=== PATIENT | female | born 1985 | race African-American/Black ===

== ENCOUNTER 2017-02-04 17:53 | Emergency (ER) | payer MEDICAID ==
[2017-02-04 18:06] VITALS: BP 97/53
[2017-02-04] MEDS ORDERED: ONDANSETRON 4 MG TAB.RAPDIS PO ONE (18:55)
[2017-02-04] MEDS ORDERED: OXYCODONE-ACETAMINOPHEN 5-325 MG TABLET PO ONE (18:55)
--- NOTE | 2017-02-04 18:57 | ER Document Report ---
ED Medical Screen (RME) - General Chief Complaint: Abdominal Pain Stated Complaint: ABDOMINAL PAIN Time Seen by Provider: 02/04/17 18:43 Notes: This 31-year-old female patient comes emergency room complaining onset yesterday of upper abdominal pain with nausea and vomiting. She states it feels like her previous episodes of pancreatitis. She reports she was released from hospital about 1 month ago for her most recent hospitalization for pancreatitis. She generally gets her care at [facility], but was down in this area visiting so she came here this time. I have greeted and performed a rapid initial assessment of this patient. A comprehensive ED assessment and evaluation of the patient, analysis of test results and completion of the medical decision making process will be conducted by additional ED providers. TRAVEL OUTSIDE OF THE [place] IN LAST 30 DAYS: No - Related Data Allergies/Adverse Reactions: No Known Allergies Allergy (Verified 02/04/17 18:26) Home Medications: Current Home Medications Omeprazole 20 mg PO DAILY 02/04/17 [History] Promethazine HCl [Phenergan 25 mg Tablet] 25 mg PO Q6H PRN 02/04/17 [History] Past Medical History - Social History Chew tobacco use (# tins/day): No Frequency of alcohol use: None Drug Abuse: None Renal/ Medical History: Denies: Hx Peritoneal Dialysis Past Surgical History: Reports: Hx Abdominal Surgery - laparoscopy, Hx Tubal Ligation - Immunizations Hx Diphtheria, Pertussis, Tetanus Vaccination: No Physical Exam - Vital signs Vitals: Temp Pulse Resp BP Pulse Ox 98.7 F 88 13 97/53 L 98 02/04/17 18:02 02/04/17 18:02 02/04/17 18:02 02/04/17 18:02 02/04/17 18:02 Course - Vital Signs Vital signs: Temp Pulse Resp BP Pulse Ox 98.7 F 88 13 97/53 L 98 02/04/17 18:02 02/04/17 18:02 02/04/17 18:02 02/04/17 18:02 02/04/17 18:02
[2017-02-04 19:56] LABS: ABSOLUTE BASOPHILS # (AUTO) 0.1 10^3/uL (0.0-0.2); ABSOLUTE EOSINOPHILS # (AUTO) 0.1 10^3/uL (0.0-0.6); ABSOLUTE LYMPHOCYTES (AUTO) 3.9 10^3/uL (0.5-4.7); ABSOLUTE MONOCYTES (AUTO) 0.5 10^3/uL (0.1-1.4); ABSOLUTE NEUT (AUTO) 2.5 10^3/uL (1.7-8.2); BASOPHILS % (AUTO) 0.9 % (0-2); EOSINOPHILS % (AUTO) 1.9 % (0-6); HEMATOCRIT 38.3 % (36.0-47.0); HEMOGLOBIN 12.5 g/dL (12.0-15.5); HGB HCT DIFFERENCE -0.8; LYMPHOCYTES % (AUTO) 55.1 % (13-45); MEAN CORPUSCULAR HEMOGLOBIN 26.2 pg (27.0-33.4); MEAN CORPUSCULAR HGB CONC 32.6 g/dL (32.0-36.0); MEAN CORPUSCULAR VOLUME 80 fl (80-97); MONOCYTES % (AUTO) 6.8 % (3-13); RED BLOOD COUNT 4.77 10^6/uL (3.72-5.28); RED CELL DISTRIBUTION WIDTH 15.6 % (11.5-14.0); SEGMENTED NEUTROPHILS % (AUTO) 35.3 % (42-78)
[2017-02-04 20:05] LABS: APPEARANCE,URINE CLEAR; BILIRUBIN,URINE NEGATIVE (NEGATIVE); GLUCOSE, URINE NEGATIVE (NEGATIVE); KETONES,URINE NEGATIVE (NEGATIVE); LEUKOCYTE ESTERASE,URINE NEGATIVE (NEGATIVE); NITRITE,URINE NEGATIVE (NEGATIVE); PROTEIN,URINE NEGATIVE (NEGATIVE); URINE SPECIFIC GRAVITY 1.006; UROBILINOGEN,URINE NEGATIVE mg/dL (<2.0)
[2017-02-04 20:16] LABS: ALANINE AMINOTRANSFERASE 16 U/L (9-52); ALBUMIN 4.8 g/dL (3.5-5.0); ALKALINE PHOSPHATASE 72 U/L (38-126); ANION GAP 10 (5-19); ASPARTATE AMINO TRANSFERASE 13 U/L (14-36); BILIRUBIN,DIRECT 0.4 mg/dL (0.0-0.4); BILIRUBIN,TOTAL 0.5 mg/dL (0.2-1.3); BLOOD UREA NITROGEN 6 mg/dL (7-20); CALCIUM 10.4 mg/dL (8.4-10.2); CARBON DIOXIDE 27 mmol/L (22-30); CHLORIDE 102 mmol/L (98-107); CREATININE RESULT 0.66 mg/dL (0.52-1.25); GLUCOSE 94 mg/dL (75-110); LIPASE 34.3 U/L (23-300); POTASSIUM 3.4 mmol/L (3.6-5.0); SODIUM 138.9 mmol/L (137-145); TOTAL PROTEIN 8.1 g/dL (6.3-8.2)
== END 2017-02-04 20:51 | disposition left against medical advice (07) ==
LOC: ER 17:53
DX: Z53.9 Procedure and treatment not carried out, unspecified reason (principal); R10.9 Unspecified abdominal pain; R10.10 Upper abdominal pain, unspecified; Z79.899 Other long term (current) drug therapy
CPT/HCPCS: 99281; 36415; 83690; 84703; 85025; 80053; 81001; S0119

== ENCOUNTER 2017-02-18 09:43 | Emergency (ER) | payer MEDICAID ==
[2017-02-18] MEDS ORDERED: ONDANSETRON HCL INJ/PF 4 MG/2 ML SDV IV ONE (09:58)
[2017-02-18] MEDS ORDERED: NORMAL SALINE 1000 ML 1,000 ML IV PRN (09:58)
--- NOTE | 2017-02-18 10:00 | ER Document Report ---
ED Medical Screen (RME) - General Chief Complaint: Abdominal Pain Stated Complaint: NAUSEA,ABDOMINAL PAIN Time Seen by Provider: 02/18/17 09:58 Notes: Patient states she has a history of chronic pancreatitis for the last 10 years. She states several days ago she began with nausea and abdominal pain consistent with her episodes of pancreatitis. She states she has had a cholecystectomy. She denies drinking alcohol. She says they have been unable to find the cause of her chronic pancreatitis. TRAVEL OUTSIDE OF THE [place] IN LAST 30 DAYS: No - Related Data Allergies/Adverse Reactions: No Known Allergies Allergy (Verified 02/18/17 09:47) Home Medications: Current Home Medications No Home Medications 02/18/17 [History] Past Medical History - Social History Chew tobacco use (# tins/day): - 5 Frequency of alcohol use: None Drug Abuse: None Renal/ Medical History: Denies: Hx Peritoneal Dialysis Past Surgical History: Reports: Hx Abdominal Surgery - laparoscopy, Hx Tubal Ligation - Immunizations Hx Diphtheria, Pertussis, Tetanus Vaccination: No Physical Exam - Vital signs Vitals: Temp Pulse Resp BP Pulse Ox 98.1 F 78 18 111/72 100 02/18/17 09:47 02/18/17 09:47 02/18/17 09:47 02/18/17 09:47 02/18/17 09:47 Course - Vital Signs Vital signs: Temp Pulse Resp BP Pulse Ox 98.1 F 78 18 111/72 100 02/18/17 09:47 02/18/17 09:47 02/18/17 09:47 02/18/17 09:47 02/18/17 09:47
[2017-02-18] MEDS ORDERED: MAG HYDROX/AL HYDROX/SIMETH SUSP 30 ML UDCUP PO ONE (10:25)
[2017-02-18] MEDS ORDERED: LIDOCAINE 2% VISCOUS SOLN 20 ML UDCUP PO ONE (10:25)
--- NOTE | 2017-02-18 10:28 | ER Document Report ---
ED GI/ - General Mode of Arrival: Ambulatory Information source: Patient TRAVEL OUTSIDE OF THE [place] IN LAST 30 DAYS: No - HPI Patient complains to provider of: Abdominal pain, Vomiting Associated symptoms: Other - see above <IVETTE SAMANO - Last Filed: 02/18/17 10:37> <SIMON SILVA - Last Filed: 02/18/17 12:12> - General Chief Complaint: Abdominal Pain Stated Complaint: NAUSEA,ABDOMINAL PAIN Time Seen by Provider: 02/18/17 09:58 Notes: Patient is a 31 year old female who presents to the ED with complaints of upper abdominal pain, nausea and vomiting x2 days. Patient states she has a history of pancreatitis and this feels the same, her last flare up was 1 month ago. She normally goes to [facility] for evaluation but that she is moving to this area. Patient was in the ED approximately 2 weeks ago for similar symptoms and states she left because she had a in the family. (IVETTE SAMANO) - Related Data Allergies/Adverse Reactions: No Known Allergies Allergy (Verified 02/18/17 09:47) Home Medications: Current Home Medications No Home Medications 02/18/17 [History] Past Medical History - General Information source: Patient - Social History Smoking Status: Current Every Day Smoker Chew tobacco use (# tins/day): No Frequency of alcohol use: None Drug Abuse: None Family History: Reviewed & Not Pertinent Renal/ Medical History: Denies: Hx Peritoneal Dialysis GI Medical History: Reports: Other - pancreatitis Past Surgical History: Reports: Hx Abdominal Surgery - laparoscopy, Hx Tubal Ligation - Immunizations Hx Diphtheria, Pertussis, Tetanus Vaccination: No <IVETTE SAMANO - Last Filed: 02/18/17 10:37> Review of Systems - Review of Systems Constitutional: No symptoms reported EENT: No symptoms reported Cardiovascular: No symptoms reported Respiratory: No symptoms reported Gastrointestinal: See HPI, Abdominal pain, Nausea, Vomiting Genitourinary: No symptoms reported Female Genitourinary: No symptoms reported Musculoskeletal: No symptoms reported Skin: No symptoms reported Hematologic/Lymphatic: No symptoms reported Neurological/Psychological: No symptoms reported <IVETTE SAMANO - Last Filed: 02/18/17 10:37> Physical Exam - General General appearance: Appears well, Alert In distress: None - HEENT Head: Normocephalic, Atraumatic Eyes: Normal Extraocular movements intact: Yes Pupils: PERRL - Respiratory Respiratory status: No respiratory distress Chest status: Nontender Breath sounds: Normal Chest palpation: Normal - Cardiovascular Rhythm: Regular Heart sounds: Normal auscultation Murmur: No - Abdominal Bowel sounds: Hypoactive Tenderness: Tender - epigastric, not tender in lower abdomen - Back Back: Normal - Extremities General upper extremity: Normal inspection, Normal ROM General lower extremity: Normal inspection, Normal ROM - Neurological Neuro grossly intact: Yes - Psychological Associated symptoms: Normal affect, Normal mood - Skin Skin Temperature: Warm Skin Moisture: Dry Skin Color: Normal <IVETTE SAMANO - Last Filed: 02/18/17 10:37> - Vital signs Vitals: Temp Pulse Resp BP Pulse Ox 98.1 F 78 18 111/72 100 02/18/17 09:47 02/18/17 09:47 02/18/17 09:47 02/18/17 09:47 02/18/17 09:47 Course <IVETTE SAMANO - Last Filed: 02/18/17 10:37> - Laboratory Result Diagrams: 02/18/17 10:35 02/18/17 10:35 <SIMON SILVA - Last Filed: 02/18/17 12:12> - Re-evaluation Re-evalutation: 02/18/17 11:46 The patient's lipase is quite low as it has been on other visits here. It is unlikely she is suffering from pancreatitis. The nurse reports that the patient initially was going to leave and go to an urgent care when she was not getting pain medications. She was given 1 Percocet. Now the nurse that the patient wants to leave stating she needs refills on all her medications. 02/18/17 12:08 Advised the patient that I do not think this is pancreatitis based on a lipase which is quite low. She states she does not know who her primary care provider is, but records indicate she does have Medicaid [place] access. She further states that someone wanted her to be seen at [facility] but they wanted all her records first before they would see her but she does not know who this is. She also states that she was hospitalized in November and December and then discharged with pain medications and would like to get refills of her pain medication. I advised her that we do not treat chronic pain with narcotics in the emergency room here. I reviewed the [place] controlled substance database and informed the patient I could see that the doctors in [facility] seem to prescribe her narcotic medication frequently. I told her that would not be occurring at this facility. I also advised her she can buy generic Prilosec OTC, she does not need prescriptions for Protonix and Prevacid which she states she is taking. (SIMON SILVA) - Vital Signs Vital signs: Temp Pulse Resp BP Pulse Ox 98.1 F 78 18 111/72 100 02/18/17 09:47 02/18/17 09:47 02/18/17 09:47 02/18/17 09:47 02/18/17 09:47 - Laboratory Laboratory results interpreted by me: 02/18/17 02/18/17 02/18/17 10:00 10:35 10:35 MCH 26.8 L RDW 16.2 H Chloride 108 H BUN 5 L AST 12 L Ur Leukocyte Esterase TRACE H Discharge <IVETTE SAMANO - Last Filed: 02/18/17 10:37> <SIMON SILVA - Last Filed: 02/18/17 12:12> - Discharge Clinical Impression: Epigastric abdominal pain Condition: Stable Disposition: HOME, SELF-CARE Additional Instructions: Reflux Disease (GERD): Gastro-Esophageal Reflux Disease (GERD) is caused by stomach acid refluxing back up into the esophagus. The valve at the end of the esophagus may be weak. This is common in persons with a hiatal hernia. GERD symptoms can include indigestion, chest pain, heartburn, or food "sticking." Certain foods, alcohol, and aspirin can make GERD worse. Treatment depends on the severity. Usually, antacids or acid-suppressing medicines are used. When the esophagus is acutely inflamed, the physician will often prescribe membrane-protective drugs such as Carafate. Some patients benefit from medication such as Reglan that tightens the valve at the top of the stomach. Avoid those foods that bring on your symptoms. For many people, these foods are coffee, chocolate, onions, garlic, and carbonated drinks. Don't use alcohol, aspirin, caffeine, or tobacco. Don't eat late at night -- within 4 hours of bedtime. Don't over-eat. If necessary, elevate the head of your bed about 4 inches so that stomach acid will not roll up into your esophagus. Call the doctor if you develop severe chest pain, inability to swallow fluids, fever, or worsening symptoms. You most likely have gastroesophageal reflux. Your lipase level is quite low today and has been on your previous visits here. That makes pancreatitis much less likely. You should get the generic version of Prilosec OTC and take on a daily basis. You should eat a bland diet. You should take anti-acids between meals and at bedtime. Follow-up with your primary care provider--the name should be listed on your Medicaid card or a phone number that you can call and find out who your provider is. RETURN TO THE EMERGENCY ROOM IF ANY NEW OR WORSENING SYMPTOMS. Sarah Attestation: 02/18/17 12:12 I personally performed the services described in the documentation, reviewed and edited the documentation which was dictated to the scribe in my presence, and it accurately records my words and actions. (SIMON SILVA) Sarah Documentation - Scribe Written by Sarah:: sarah Iglesias, 02/18/2017, 1036 acting as scribe for :: Tabitha <IVETTE SAMANO - Last Filed: 02/18/17 10:37>
[2017-02-18 10:45] LABS: APPEARANCE,URINE SLIGHTLY-CLOUDY; BILIRUBIN,URINE NEGATIVE (NEGATIVE); GLUCOSE, URINE NEGATIVE (NEGATIVE); KETONES,URINE NEGATIVE (NEGATIVE); LEUKOCYTE ESTERASE,URINE TRACE (NEGATIVE); NITRITE,URINE NEGATIVE (NEGATIVE); PROTEIN,URINE NEGATIVE (NEGATIVE); URINE SPECIFIC GRAVITY 1.002; UROBILINOGEN,URINE NEGATIVE mg/dL (<2.0)
[2017-02-18 11:05] LABS: ABSOLUTE BASOPHILS # (AUTO) 0.1 10^3/uL (0.0-0.2); ABSOLUTE EOSINOPHILS # (AUTO) 0.1 10^3/uL (0.0-0.6); ABSOLUTE LYMPHOCYTES (AUTO) 2.2 10^3/uL (0.5-4.7); ABSOLUTE MONOCYTES (AUTO) 0.5 10^3/uL (0.1-1.4); ABSOLUTE NEUT (AUTO) 3.3 10^3/uL (1.7-8.2); BASOPHILS % (AUTO) 1.1 % (0-2); EOSINOPHILS % (AUTO) 1.9 % (0-6); HEMATOCRIT 37.7 % (36.0-47.0); HEMOGLOBIN 12.5 g/dL (12.0-15.5); HGB HCT DIFFERENCE -0.2; LYMPHOCYTES % (AUTO) 35.7 % (13-45); MEAN CORPUSCULAR HEMOGLOBIN 26.8 pg (27.0-33.4); MEAN CORPUSCULAR HGB CONC 33.3 g/dL (32.0-36.0); MEAN CORPUSCULAR VOLUME 81 fl (80-97); MONOCYTES % (AUTO) 7.9 % (3-13); RED BLOOD COUNT 4.66 10^6/uL (3.72-5.28); RED CELL DISTRIBUTION WIDTH 16.2 % (11.5-14.0); SEGMENTED NEUTROPHILS % (AUTO) 53.4 % (42-78); WHITE BLOOD COUNT 6.1 10^3/uL (4.0-10.5)
[2017-02-18] MEDS ORDERED: OXYCODONE-ACETAMINOPHEN 5-325 MG TABLET PO ONE (11:11)
[2017-02-18 11:26] LABS: ALANINE AMINOTRANSFERASE 16 U/L (9-52); ALBUMIN 4.3 g/dL (3.5-5.0); ALKALINE PHOSPHATASE 72 U/L (38-126); ANION GAP 10 (5-19); ASPARTATE AMINO TRANSFERASE 12 U/L (14-36); BILIRUBIN,DIRECT 0.4 mg/dL (0.0-0.4); BILIRUBIN,TOTAL 0.4 mg/dL (0.2-1.3); BLOOD UREA NITROGEN 5 mg/dL (7-20); CALCIUM 10.2 mg/dL (8.4-10.2); CARBON DIOXIDE 24 mmol/L (22-30); CHLORIDE 108 mmol/L (98-107); CREATININE RESULT 0.66 mg/dL (0.52-1.25); GLUCOSE 89 mg/dL (75-110); LIPASE 40.3 U/L (23-300); SODIUM 142.1 mmol/L (137-145); TOTAL PROTEIN 7.1 g/dL (6.3-8.2)
[2017-02-18 12:26] VITALS: BP 109/63
== END 2017-02-18 12:25 | disposition home or self-care (01) ==
LOC: ER 09:43
DX: R10.13 Epigastric pain (principal); R11.2 Nausea with vomiting, unspecified; F17.200 Nicotine dependence, unspecified, uncomplicated; Z98.51 Tubal ligation status; Z87.19 Personal history of other diseases of the digestive system
CPT/HCPCS: 99284; 96361; 96374; 36415; 83690; 85025; 81025; 80053; 81001; J3490 ×2; J2405; J7030

== ENCOUNTER 2019-12-21 20:19 | Emergency (ER) | payer MEDICAID ==
[2019-12-21 21:18] VITALS: BP 128/76
== END 2019-12-22 00:24 | disposition left against medical advice (07) ==
LOC: ER 20:19
DX: Z53.21 Procedure and treatment not carried out due to patient leaving prior to being seen by health care provider (principal)

== ENCOUNTER 2020-01-19 13:32 | Emergency (ER) | payer MEDICAID ==
[2020-01-19 13:40] VITALS: BP 101/68
[2020-01-19] MEDS ORDERED: ONDANSETRON 4 MG TAB.RAPDIS PO ONE (14:20)
[2020-01-19] MEDS ORDERED: NORMAL SALINE 1000 ML 1,000 ML IV ONE (14:21)
--- NOTE | 2020-01-19 14:22 | ER Document Report ---
ED Medical Screen (RME) - General Chief Complaint: Abdominal Pain Stated Complaint: ABDOMINAL/BACK PAIN Time Seen by Provider: 01/19/20 14:16 Notes: Patient is a 34-year-old female presents the emergency department with a chief complaint of upper abdominal pain. Patient has history of pancreatitis in the past. Patient states that her pain feels like pancreatitis again. Patient admits to some nausea and vomiting. Exam: Tender mid upper abdomen. I have greeted and performed a rapid initial assessment of this patient. A comprehensive ED assessment and evaluation of the patient, analysis of test results and completion of medical decision making process will be conducted by an additional ED providers. TRAVEL OUTSIDE OF THE [place] IN LAST 30 DAYS: No - Related Data Allergies/Adverse Reactions: No Known Allergies Allergy (Verified 02/18/17 09:47) Past Medical History - Social History Frequency of alcohol use: None Renal/ Medical History: Denies: Hx Peritoneal Dialysis Past Surgical History: Reports: Hx Abdominal Surgery - laparoscopy, Hx Tubal Ligation - Immunizations Hx Diphtheria, Pertussis, Tetanus Vaccination: No Physical Exam - Vital signs Vitals: Temp Pulse Resp BP Pulse Ox 99.0 F 98 20 101/68 98 01/19/20 13:39 01/19/20 13:39 01/19/20 13:39 01/19/20 13:39 01/19/20 13:39 Course - Vital Signs Vital signs: Temp Pulse Resp BP Pulse Ox 99.0 F 98 20 101/68 98 01/19/20 13:39 01/19/20 13:39 01/19/20 13:39 01/19/20 13:39 01/19/20 13:39
[2020-01-19 14:44] LABS: ABSOLUTE BASOPHILS # (AUTO) 0.1 10^3/uL (0.0-0.2); ABSOLUTE EOSINOPHILS # (AUTO) 0.2 10^3/uL (0.0-0.6); ABSOLUTE LYMPHOCYTES (AUTO) 2.8 10^3/uL (0.5-4.7); ABSOLUTE MONOCYTES (AUTO) 0.6 10^3/uL (0.1-1.4); ABSOLUTE NEUT (AUTO) 4.1 10^3/uL (1.7-8.2); BASOPHILS % (AUTO) 1.4 % (0-2); EOSINOPHILS % (AUTO) 2.6 % (0-6); HEMATOCRIT 38.7 % (36.0-47.0); HEMOGLOBIN 12.6 g/dL (12.0-15.5); LYMPHOCYTES % (AUTO) 35.8 % (13-45); MEAN CORPUSCULAR HEMOGLOBIN 25.9 pg (27.0-33.4); MEAN CORPUSCULAR HGB CONC 32.6 g/dL (32.0-36.0); MEAN CORPUSCULAR VOLUME 79 fl (80-97); MONOCYTES % (AUTO) 7.4 % (3-13); PLATELET COUNT 288 10^3/uL (150-450); RED BLOOD COUNT 4.88 10^6/uL (3.72-5.28); RED CELL DISTRIBUTION WIDTH 16.4 % (11.5-14.0); SEGMENTED NEUTROPHILS % (AUTO) 52.8 % (42-78); TOTAL CELLS COUNTED % (AUTO) 100 %; WHITE BLOOD COUNT 7.8 10^3/uL (4.0-10.5)
[2020-01-19 15:03] LABS: ALBUMIN 4.4 g/dL (3.5-5.0); ALKALINE PHOSPHATASE 80 U/L (38-126); ASPARTATE AMINO TRANSFERASE 15 U/L (14-36); BILIRUBIN,TOTAL 0.2 mg/dL (0.2-1.3); BLOOD UREA NITROGEN 8 mg/dL (7-20); CALCIUM 10.1 mg/dL (8.4-10.2); CARBON DIOXIDE 26 mmol/L (22-30); CHLORIDE 108 mmol/L (98-107); GLUCOSE 93 mg/dL (75-110); POTASSIUM 4.1 mmol/L (3.6-5.0); TOTAL PROTEIN 7.7 g/dL (6.3-8.2)
[2020-01-19 15:08] LABS: APPEARANCE,URINE SLIGHTLY-CLOUDY; BILIRUBIN,URINE SMALL (NEGATIVE); COLOR,URINE AMBER; GLUCOSE, URINE NEGATIVE (NEGATIVE); KETONES,URINE NEGATIVE (NEGATIVE); LEUKOCYTE ESTERASE,URINE TRACE (NEGATIVE); NITRITE,URINE NEGATIVE (NEGATIVE); PROTEIN,URINE 30 mg/dL (NEGATIVE); URINE SPECIFIC GRAVITY 1.031
[2020-01-19 15:34] LABS: ANION GAP 4 (5-19)
== END 2020-01-19 16:59 | disposition left against medical advice (07) ==
LOC: ER 13:32
DX: R10.10 Upper abdominal pain, unspecified (principal); R11.2 Nausea with vomiting, unspecified
CPT/HCPCS: 99281; 36415; 83690; 85025; 81025; 80053; 81001; S0119